=== PATIENT | female | born 1990 | race Caucasian/White ===

== ENCOUNTER 2016-10-30 17:07 | Emergency (ER) | payer OTHER ==
[~2016-10-30] VITALS: Ht 162.6 cm; Wt 49.9 kg
[~2016-10-30 17:07] MED LIST: KEFLEX500 MG PO; MOTRIN800 MG PO; VICODIN5-300 PO
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
--- NOTE | 2016-10-30 19:17 | CT SCAN REPORT ---
EXAMINATION: CT HEAD WITHOUT CONTRAST CLINICAL INFORMATION: Headache. Vomiting. COMPARISON: CT head 05/01/2012 TECHNIQUE: Contiguous axial imaging was performed from the skull base to vertex without intravenous administration of contrast. DLP: 600.71 mGy-cm. FINDINGS: There is no evidence of acute intracranial hemorrhage or territorial infarction. No abnormal mass effect or midline shift is seen. Ba to white matter differentiation is well preserved. No extra-axial fluid collections are identified. The ventricles are normal in size. There is no abnormal attenuation within the brain parenchyma. The osseous structures and soft tissues are normal. The mastoid air cells and visualized portions of the paranasal sinuses are well aerated. IMPRESSION: No acute intracranial pathology.
[2016-10-30] MEDS ORDERED: IBUPROFEN800 M1 PO (19:52)
[2016-10-30 19:54] VITALS: BP 120/68
== END 2016-10-30 19:49 ==
LOC: ERH 17:07
DX: F07.81 Postconcussional syndrome (principal); F12.10 Cannabis abuse, uncomplicated
CPT/HCPCS: 80307; 81025

== ENCOUNTER 2016-12-21 09:40 | Emergency (ER) | payer OTHER ==
[~2016-12-21] VITALS: Ht 160 cm; Wt 59.0 kg
[~2016-12-21 09:40] MED LIST changes: +IBUPROFEN800 M1 PO
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
[2016-12-21] MEDS ORDERED: REMERON15 M2 PO (11:27)
[2016-12-21] MEDS ORDERED: METHADONE10 MG/1 M2 PO (11:28)
[2016-12-21] MEDS ORDERED: ALPRAZOLAM0.25 M1 PO (11:28)
[2016-12-21] MEDS ORDERED: FIORICET 50-301 EACH PO (12:43)
[2016-12-21] MEDS ORDERED: CYCLOBENZAPRINE5 M2 PO (12:43)
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
[2016-12-21 13:04] VITALS: BP 108/76
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
== END 2016-12-21 13:05 ==
LOC: ERH 09:40
DX: S06.0X0A Concussion without loss of consciousness, initial encounter (principal); S60.211A Contusion of right wrist, initial encounter; Y00.XXXA Assault by blunt object, initial encounter; Y93.9 Activity, unspecified; Y92.9 Unspecified place or not applicable
CPT/HCPCS: 73110-RT; 81025